=== PATIENT | female | born 1970 | race Caucasian/White ===

== ENCOUNTER 2018-01-04 08:42 | Emergency (ER) | payer OTHER ==
[~2018-01-04] VITALS: Ht 175.3 cm; Wt 113.4 kg
[~2018-01-04 08:42] MED LIST: ALBU90OI INH; AMOCLA875 PO; AMOX500 PO; AZIT250 PO; CEPH500 PO; CITA20 PO; CONEST.625; CRUTCH3 USE; CYCL10 PO; DIAZ5 PO; DIPATR PO; FLUC150A PO; FLUT.05NI; GABA300; GUAI100SY; GUAI120S1 PO; HYDACE5 PO; HYDGUAL120 PO; IBUP800 PO; LISI10 PO; LISI5 PO; LOSARTAN POTAS100 MG PO; METF500 PO; MORP60ER PO; NAPR500 PO; NYQUIL; Norco 5-325 Ta1 EACH PO; OMEPRAZOLE MAGN20 MG PO; OXYACE5T PO; PHENA200 PO; PRED20 PO; PROM12.5S PR; PROM25 PO; Pyridium200 MG PO; RXHYDACE PO; RXHYDMOR2 PO; RXOXYACE PO; SULTRIDS PO; TRAZ50 PO; ZOLP10 PO; Zithromax250 MG PO; Zofran Odt8 MG SL
[2018-01-04] MEDS ORDERED: LEVO-T50 MCG PO (09:32)
[2018-01-04] MEDS ORDERED: GABA300 PO (09:33)
[2018-01-04] MEDS ORDERED: Bactrim Ds Tab1 EACH PO (09:34)
[2018-01-04] MEDS ORDERED: FLUC150A PO (09:38)
== END 2018-01-04 09:37 | disposition home or self-care (01) ==
LOC: ER 08:42
DX: L03.311 Cellulitis of abdominal wall (principal); I10 Essential (primary) hypertension; Z79.899 Other long term (current) drug therapy; Z79.84 Long term (current) use of oral hypoglycemic drugs; Z87.01 Personal history of pneumonia (recurrent)
CPT/HCPCS: 99283